=== PATIENT | male | born 1940 | race Caucasian/White ===

== ENCOUNTER 2021-12-05 10:41 | Outpatient (CLI) | payer OTHER | END 2021-12-05 10:48 | disposition home or self-care (01) | LOC: LAB 10:41 | PROVIDERS: ATTEND Internal Medicine Cardiovascular Disease | DX: A49.3 Mycoplasma infection, unspecified site (principal); J11.1 Influenza due to unidentified influenza virus with other respiratory manifestations; Z20.822 Contact with and (suspected) exposure to COVID-19 ==